=== PATIENT | male | born 1950 | race Asian ===

== ENCOUNTER 2021-10-01 09:20 | Emergency (ER) | payer OTHER ==
[~2021-10-01] VITALS: Ht 177.8 cm; Wt 54.4 kg
[2021-10-01 09:20] VITALS: TEMP 98
[2021-10-01 10:27] LABS: PLATELET COUNT 156 K/uL (142-355)
[2021-10-01 10:37] LABS: POTASSIUM 4.3 mmol/L (3.6-5.2)
[2021-10-01 12:40] VITALS: BP 126/88
== END 2021-10-01 12:40 | disposition home or self-care (01) ==
LOC: ED 09:20
PROVIDERS: Emergency Medicine
DX: M54.59 Other low back pain (principal); N40.0 Benign prostatic hyperplasia without lower urinary tract symptoms
CPT/HCPCS: 80053; 81000; 84153; 85027; 96360; 96374; 96375; 99284; J1885; Q9963